=== PATIENT | male | born 1990 | race African-American/Black ===

== ENCOUNTER 2021-02-21 12:25 | Emergency (ER) | payer OTHER ==
[2021-02-21 12:44] VITALS: BP 153/77; PULSE 88; TEMP 98.6; BMI 26.5
[2021-02-21 13:20] LABS: BASO % 0.4 % (0-2.0); EOS % 0.5 % (0-4.5); HEMATOCRIT 43.6 % (35.4-49); HEMOGLOBIN 14.5 GM/dL (11.7-16.9); LYMPH % 18.5 % (8-40); MCH 29.2 pg (25.7-33.7); MCHC 33.4 g/dl (32.0-35.9); MEAN CELL VOLUME 87.5 fl (80-96); MEAN PLT VOLUME 8.8 fl (7.5-11.1); MONO % 10.4 % (3.8-10.2); NEUT % 70.2 % (42.8-82.8); PLATELET COUNT 174 K/MM3 (134-434); RBC 4.98 M/mm3 (4.00-5.60); WHITE BLOOD COUNT 6.2 K/mm3 (4.0-10.0)
[2021-02-21] MEDS ORDERED: morphine CARPU-JECT 2 MG/1 ML DISP.SYRIN IVPUSH ONE (13:27)
[2021-02-21] MEDS ORDERED: METHOCARBAMOL 500 MG TABLET PO ONE (13:27)
[2021-02-21] MEDS ORDERED: MORPHINE SULFATE 2 MG/ML VIAL ONE (13:29)
[2021-02-21 13:33] LABS: PROTHROMBIN TIME (PATIENT) 12.3 SEC (9.7-13.0)
[2021-02-21 13:35] LABS: ACTIVATED PTT 31.5 SECONDS (25.2-36.5)
[2021-02-21] MEDS ORDERED: METHOCARBAMOL 500 MG TABLET ONE ×2 (13:39→13:42)
[2021-02-21 13:43] LABS: POTASSIUM 4.1 mmol/L (3.5-5.1)
[2021-02-21 13:45] LABS: ALBUMIN 4.2 g/dl (3.4-5.0); BLOOD UREA NITROGEN 8.3 mg/dL (7-18); CALCIUM 9.8 mg/dL (8.5-10.1)
[2021-02-21 13:48] LABS: CREATININE 1.1 mg/dL (0.55-1.3)
[2021-02-21 13:50] LABS: BILIRUBIN,TOTAL 0.6 mg/dL (0.2-1); TOT PROT 7.6 g/dl (6.4-8.2)
== END 2021-02-21 17:12 | disposition home or self-care (01) ==
LOC: JER 12:25
PROC: 3E033GC Introduction of Other Therapeutic Substance into Peripheral Vein, Percutaneous Approach (ICD-10-PCS; principal; 2021-02-21)
DX: M54.5 Low back pain (principal); M25.551 Pain in right hip; V49.49XA Driver injured in collision with other motor vehicles in traffic accident, initial encounter; W23.0XXA Caught, crushed, jammed, or pinched between moving objects, initial encounter
CPT/HCPCS: 36415; 74177-TC; 80053; 85025; 85610; 85730; 86850; 86900; 86901; 99285-25; Q9967